=== PATIENT | female | born 1980 | race Hispanic/Latino ===

== ENCOUNTER → 2020-03-01 | Outpatient (CLI) | payer SELFPAY | LOC: YCFC.O 16:49 | PROVIDERS: ATTEND Family Medicine | DX: R10.13 Epigastric pain (principal); R10.9 Unspecified abdominal pain; Z13.220 Encounter for screening for lipoid disorders ==

== ENCOUNTER 2020-03-02 05:28 | Emergency (ER) | payer SELFPAY ==
[2020-03-02] MEDS ORDERED: LIDOCAINE HCL 2% (MOUTH-THROAT) 15 ML UD ONE (05:50)
[2020-03-02] MEDS ORDERED: ALUM & MAG HYDROX-SIMETHICONE 30 ML UD ONE (05:50)
[2020-03-02] MEDS ORDERED: ONDANSETRON ODT 8 MG TAB SL ONE (05:50)
[2020-03-02] MEDS ORDERED: ALUM & MAG HYDROX-SIMETHICONE 30 ML, LIDOCAINE VISCOUS 2% 15 ML PO ONE ×2 (05:50)
--- NOTE | 2020-03-02 06:10 | RAD ---
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 No prior films are available this time for comparison. The heart is not enlarged. The thoracic aorta is unremarkable. The pulmonary vasculature is normal distribution. No focal areas of consolidations and/or pleural effusions. The soft tissues and bony structures are unremarkable. No evidence for pneumothorax. The gas pattern is nondiagnostic. No signs of ileus or obstruction. No free air under the diaphragm is noted. Surgical clips within the gallbladder fossa corresponding to previous cholecystectomy No abnormal calcifications are seen. The bone windows demonstrate to be unremarkable. IMPRESSION: NO ACUTE CARDIOPULMONARY DISEASE IS SEEN. NONDIAGNOSTIC GAS PATTERN. NO SIGNS OF OBSTRUCTION OR ILEUS. Electronically signed by: Desean Claire MD 03/02/2020 6:08 AM TOWBOAT OPERATOR
[2020-03-02] MEDS ORDERED: SUCRALFATE 1 GM/10 ML 1 GM UD PO ONE (06:24)
[2020-03-02] MEDS ORDERED: HYDROcodone 5MG/APAP 325MG 1 EA TAB PO ONE (06:24)
[2020-03-02] MEDS ORDERED: FAMOTIDINE 20 MG TAB PO ONE (06:25)
--- NOTE | 2020-03-02 06:29 | ED.PDOC ---
History of Present Illness - General Source: patient Exam Limitations: no limitations - History of Present Illness Initial Comments: The patient is a 39-year-old female presented emergency room secondary to intermittent pain under her left breast for the last 2 days. On exam however it really does appear to be localized to the epigastric area. Questionable nausea but no vomiting. No fever. The patient was seen by her primary care doctor yesterday who did fairly extensive lab work which was reassuring. She does appear to have possibly a small mild urinary tract infection. Vital signs are stable here but the patient is very anxious and obviously significantly uncomfortable. There is no guarding, no palpable mass. No bruising. She denies fevers, cough or shortness of breath. No palpitations. She denies heavy NSAID use. She denies having this problem significantly before. It does appear to be cramping and burning in nature. GI cocktail helped about 60%. Timing/Duration: other - Intermittent 2 days Severity: moderate Improving Factors: nothing Worsening Factors: other - Palpation Associated Symptoms: loss of appetite, malaise <Duy Connelly - Last Filed: 03/02/20 06:26> <Telly Hayden - Last Filed: 03/02/20 08:29> - General Chief Complaint: General Stated Complaint: pain under left breast, onset 2 days Time Seen by Provider: 03/02/20 05:43 - History of Present Illness Allergies/Adverse Reactions: Allergies NO KNOWN ALLERGY Allergy (Verified 03/02/20 05:39) Home Medications: Ambulatory Orders Ondansetron Odt [Zofran ODT] 8 mg PO TID PRN #10 tab 03/02/20 Review of Systems - Review of Systems Constitutional: States: malaise EENTM: States: no symptoms reported Respiratory: States: no symptoms reported Cardiology: States: no symptoms reported Gastrointestinal/Abdominal: States: abdominal pain, nausea Genitourinary: States: no symptoms reported Musculoskeletal: States: no symptoms reported Skin: States: no symptoms reported Neurological: States: anxiety Endocrine: States: no symptoms reported All other Systems: No Change from Baseline <Duy Connelly - Last Filed: 03/02/20 06:26> Past Medical History (General) - Patient Medical History Hx Seizures: No Hx Stroke: No Hx Dementia: No Hx Asthma: No Hx of COPD: No Hx Cardiac Disorders: No Hx Congestive Heart Failure: No Hx Pacemaker: No Hx Hypertension: No Hx Thyroid Disease: No Hx Diabetes: No Hx Gastroesophageal Reflux: No Hx Renal Disease: No Hx Cancer: No Hx of HIV: No Hx Hepatitis C: No Hx MRSA: No Surgical History: no surgical history - Vaccination History Hx Tetanus, Diphtheria Vaccination: No Hx Influenza Vaccination: No Hx Pneumococcal Vaccination: No - Social History Hx Tobacco Use: Yes Hx Chewing Tobacco Use: No Hx Alcohol Use: No Hx Substance Use: No Hx Substance Use Treatment: No Hx Depression: No Hx Physical Abuse: No Hx Emotional Abuse: No Hx Suspected Abuse: No - Female History Patient : No <Duy Connelly - Last Filed: 03/02/20 06:26> Family Medical History - Family History Mother Living Status: Still Living Hx Family;Other: [place] <Duy Connelly - Last Filed: 03/02/20 06:26> Physical Exam - Physical Exam General Appearance: Alert, Anxious, Other - Uncomfortable Eye Exam: bilateral normal Ears, Nose, Throat: hearing grossly normal, normal pharynx Neck: non-tender, supple Respiratory: chest non-tender, lungs clear, normal breath sounds, no respiratory distress, no accessory muscle use Cardiovascular/Chest: normal peripheral pulses, regular rate, rhythm, no edema Peripheral Pulses: radial,right: 2+, radial,left: 2+ Gastrointestinal/Abdominal: soft, other - Epigastric tenderness to palpation. See history of present illness. 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 She has had a moderate response to a GI cocktail. We are giving further GI medications in the form of Carafate and famotidine. Acute abdominal series appears reassuring. EKG is certainly nondiagnostic for any acute cardiac pathology. Had a negative cardiac enzymes yesterday with her primary care doctor. We are going to go ahead and order another set here along with some additional lab work. We will go ahead and test for coronavirus being that younger people tend to have more GI symptoms. She does appear to have a small urinary tract infection on her urinalysis from yesterday. Treatment of this may be warranted. At this point in time I would say the most likely diagnosis for the patient is an acute gastritis. We will however do the lab work to help rule out more significant pathology. The patient will be followed by the oncoming ER physician. Vital signs are stable at this point. duy charles [id number] - Results/Orders Results/Orders: EKG shows normal sinus rhythm at 72 bpm. There is some right axis deviation. Mild T wave inversions in V2. She does have left atrial dilation. No ST segment elevation or depression to indicate acute ischemia. She also has T wave inversion in aVL. I do not have the previous EKG to compare to. Normal QT interval. Borderline LVH criteria <Duy Connelly - Last Filed: 03/02/20 06:26> Departure <Duy Connelly - Last Filed: 03/02/20 06:26> - Departure Time of Disposition: 08:26 <Telly Hayden - Last Filed: 03/02/20 08:29> - Departure Clinical Impression: Epigastric pain, COVID-19 Disposition: Discharge to Home or Self Care Condition: Good Departure Forms: ED Discharge - Pt. Copy, Patient Portal Self Enrollment Instructions: Coronavirus Disease 2019 (COVID-19) Overview Referrals: Nicky Bergman MD [Primary Care Provider] - 1-2 Weeks Prescriptions: Ondansetron Odt [Zofran ODT] 8 mg PO TID PRN #10 tab PRN Reason: NAUSEA / VOMITING Home Medications: Ambulatory Orders Ondansetron Odt [Zofran ODT] 8 mg PO TID PRN #10 tab 03/02/20 Additional Instructions: RECOMMEND OTC PEPCID 20 MG TWICE DAILY FOR 1 WEEK.
[2020-03-02 07:24] VITALS: O2SAT 98
--- NOTE | 2020-03-02 08:01 | CT ---
EXAM DESCRIPTION: CTA Chest CLINICAL HISTORY: chest pain, elevated d-dimer, covid-19 pos. COMPARISON: None. TECHNIQUE: Postcontrast CT images of the chest are obtained using pulmonary embolism imaging protocol. Three-D MIP reconstructed images of the arterial vasculature are obtained. Coronal and sagittal reconstructed images of the also provided. This exam was performed according to our departmental dose-optimization program, which includes automated exposure control, adjustment of the mA and/or kV according to patient size and/or use of iterative reconstruction technique . FINDINGS: Opacification of the pulmonary arteries is suboptimal secondary to timing of the bolus contrast with more prominent opacification of the left heart chambers and thoracic aorta. No large or obvious filling defects are seen in the pulmonary arteries. The mid to distal branches are less well identified. No thoracic aortic aneurysm or dissection. No pathologically enlarged mediastinal, hilar, or axillary lymphadenopathy seen. No pleural or pericardial effusion. Visualized portion of the upper abdomen shows no acute findings. Lungs are mildly hypoaerated. No acute appearing infiltrate or consolidation seen. No areas of groundglass attenuation are seen. Osseous structures show no aggressive bony lesions. IMPRESSION: Suboptimal CTA of the chest for pulmonary embolism evaluation secondary to timing of contrast injection. No large filling defects or emboli are seen in the main pulmonary arteries. Consider repeat examination with 50 mL of IV contrast and improved timing of the injection and imaging if the patient has normal renal function and normal creatinine level. Otherwise, consider repeat imaging in 24 hours. No acute findings on CT of the chest. No CT findings to indicate pneumonia. Note: CT may be negative in the early stages of COVID-19 pneumonia. Electronically signed by: Alphonse Butler MD 03/02/2020 7:59 AM SINKER WINDER
[2020-03-02 08:39] VITALS: BP 131/95; TEMP 97.6
== END 2020-03-02 08:39 | disposition home or self-care (01) ==
LOC: ER 05:28
DX: U07.1 COVID-19 (principal); R10.13 Epigastric pain; Z87.891 Personal history of nicotine dependence